=== PATIENT | male | born 1950 ===

== ENCOUNTER 2020-03-21 08:47 | Emergency (ER) | payer SELFPAY ==
[~2020-03-21] VITALS: Ht 185.4 cm; Wt 74.1 kg
--- NOTE | 2020-03-21 09:21 | NUR ---
PT C/O CP THIS AM, THAT HAS SINCE RESOLVED. PT ALSO EXPERIENCING INSOMNIA. PT HAS BEEN EXPERIENCING THIS FOR OVER 3 DAYS. PT STATES HE HAS FELT LIKE THIS 30 YEARS AGO WHEN HE WAS GOING THROUGH A DIVORCE. PT WAS DX WITH ANXIETY AT THAT TIME. PT DENIES SOB OR GI DISTRESS AT THIS TIME. PT CURRENTLY HAS SIGNIFICANT STRESS AND GOING THROUGH ANOTHER DIVORCE CURRENTLY.
[2020-03-21 09:25] VITALS: BP 149/101
[2020-03-21] MEDS ORDERED: SODIUM CHLORIDE FLUSH 10ML SYR IVF ONE (09:30)
[2020-03-21] MEDS ORDERED: ASPIRIN 81 MG TABLET CHEW PO ONE (09:30)
[2020-03-21] MEDS ORDERED: ASPIRIN 81 MG TABLET CHEW ONE (09:41)
--- NOTE | 2020-03-21 10:05 | NUR ---
PT REFUSING LABS AND XRAY. DR GARCIA AND ALINE WASHINGTON ADVISED.
--- NOTE | 2020-03-21 10:20 | NUR ---
WENT TO PT ROOM AND PT ROOM [facility]. [facility] TECHNICIAN ADVISED PT LEFT ER, WALKING. PT BELONGINGS LEFT IN ROOM. BELONGINGS TAKEN TO SECURITY WITH PT LABEL ON BAG.
== END 2020-03-21 10:27 | disposition left against medical advice (07) ==
LOC: ED 10:00
DX: R07.89 Other chest pain (principal); R06.02 Shortness of breath; F41.9 Anxiety disorder, unspecified; F17.210 Nicotine dependence, cigarettes, uncomplicated
CPT/HCPCS: 93005; 99283